=== PATIENT | female | born 1980 | race Caucasian/White ===

== ENCOUNTER 2016-05-31 07:35 | Inpatient (IN) | payer OTHER ==
[~2016-05-31] VITALS: Ht 152.4 cm; Wt 53.5 kg
[2016-05-31] MEDS ORDERED: BENZTROPINE MESYLATE 1 MG TAB PO PRN (12:45)
[2016-05-31] MEDS ORDERED: LORazepam 2 MG/ML VIAL IM PRN ×5 (12:45→15:15)
[2016-05-31] MEDS ORDERED: MAGNESIUM HYDROXIDE SUSP 30 ML CUP PO PRN (12:45)
[2016-05-31] MEDS ORDERED: diphenhydrAMINE HCL 50 MG CAP PO PRN (12:45)
[2016-05-31] MEDS ORDERED: BENZTROPINE MESYLATE 2 MG/2 ML VIAL IM PRN (12:45)
[2016-05-31] MEDS ORDERED: ACETAMINOPHEN 325 MG TAB PO PRN (12:45)
[2016-05-31] MEDS ORDERED: ALUMINUM/MAGNESIUM/SIMETH 30 ML CUP PO PRN (12:45)
[2016-05-31 13:32] VITALS: BP 116/70; PULSE 90; RESP 20; TEMP 98.1; O2SAT 95
[2016-05-31] MEDS ORDERED: FLUMAZENIL 0.5 MG/5 ML VIAL IV PUSH PRN (15:15)
[2016-05-31] MEDS ORDERED: LORazepam 1 MG TAB PO PRN (15:15)
[2016-05-31] MEDS ORDERED: LORazepam 2 MG TAB PO PRN (15:15)
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
[2016-05-31] MEDS: LORazepam 1 MG TAB PO PRN (19:06)
[2016-05-31 19:28] LABS: AUTOMATED NEUTROPHIL # 6.4 TH/MM3 (1.8-7.7); BASOPHIL % 0.5 % (0.0-2.0); EOSINOPHIL # 0.1 TH/MM3 (0-0.4); EOSINOPHIL % 1.1 % (0.0-4.0); HEMATOCRIT 36.4 % (35.0-46.0); LYMPH % 15.3 % (9.0-44.0); LYMPHOCYTE # 1.4 TH/MM3 (1.0-4.8); MEAN CELL VOLUME 86.9 FL (80.0-100.0); MEAN CORPUSCULAR HGB CONC 32.2 % (32.0-36.0); NEUT % 70.1 % (16.0-70.0); PLATELET COUNT 97 TH/MM3 (150-450); RED BLOOD COUNT 4.18 MIL/MM3 (4.00-5.30); RED CELL DISTRIBUTION WIDTH 13.9 % (11.6-17.2); WHITE BLOOD COUNT 9.1 TH/MM3 (4.0-11.0)
[2016-05-31 19:30] LABS: HEMO FLAGS AUTO DIFF
[2016-05-31 20:03] LABS: ALKALINE PHOSPHATASE 140 U/L (45-117); ALT (GPT) 104 U/L (10-53); ANION GAP 11 MEQ/L (5-15); AST (GOT) 116 U/L (15-37); BICARBONATE 24.7 MEQ/L (21.0-32.0); BLOOD UREA NITROGEN 8 MG/DL (7-18); CHLORIDE 99 MEQ/L (98-107); GLOMERULAR FILTRATION RATE 100 ML/MIN (>89); POTASSIUM 4.1 MEQ/L (3.5-5.1); SODIUM (NA) 135 MEQ/L (136-145); TOTAL BILIRUBIN ADULT 1.5 MG/DL (0.2-1.0)
[2016-05-31 20:06] LABS: BHCG SCREEN QUALITATIVE LESS THAN 1 MIU/ML (0-5)
[2016-05-31 20:07] LABS: SCAN/DIFF AUTO DIFF CONFIRMED; TARGET CELLS 2+ (NORMAL)
[2016-05-31 21:35] VITALS: BP 143/83; PULSE 112; RESP 18; TEMP 97.8; O2SAT 94
[2016-06-01 05:42] VITALS: BP 139/68; PULSE 100; RESP 18; TEMP 98.1; O2SAT 96
[2016-06-01 08:14] LABS: LDL CHOLESTEROL 56 MG/DL (0-99)
[2016-06-01] MEDS: LORazepam 1 MG TAB PO PRN ×2 (08:25→20:17)
[2016-06-01] MEDS: THIAMINE HCL 100 MG TAB PO SCH (08:25)
[2016-06-01] MEDS: FOLIC ACID 1 MG TAB PO SCH (08:25)
[2016-06-01] MEDS: NICOTINE 21 MG/24 HR PATCH T-DERMAL SCH (08:58)
[2016-06-01] MEDS: REMOVE OLD PATCH T-DERMAL SCH (08:58)
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
[2016-06-01] MEDS ORDERED: chlordiazePOXIDE 25 MG CAP PO ONE (11:15)
[2016-06-01 16:04] LABS: HEMOGLOBIN A1a 1.3 %; HEMOGLOBIN A1b 0.5 %; HEMOGLOBIN Ao 87.9 %; HEMOGLOBIN F 1.6 %; HEMOGLOBIN LA1C 1.6 %; HEMOGLOBIN P3 2.8 %
[2016-06-01 19:37] VITALS: BP 115/69; PULSE 83; RESP 16; TEMP 98.4; O2SAT 99
[2016-06-02 05:36] VITALS: BP 115/61; PULSE 105; PULSE 120; RESP 16; TEMP 98.3; O2SAT 99
--- NOTE | 2016-06-02 07:04 | EKG ---
Date Performed: 05/31/2016 Time Performed: 16:15:02 PTAGE: 35 years EKG: Sinus rhythm NORMAL ECG NO PREVIOUS TRACING DOCTOR: Bryan Gallagher Interpretating Date/Time 06/02/2016 07:01:33
[2016-06-02] MEDS: REMOVE OLD PATCH T-DERMAL SCH (09:00)
[2016-06-02] MEDS: NICOTINE 21 MG/24 HR PATCH T-DERMAL SCH (09:00)
[2016-06-02] MEDS: THIAMINE HCL 100 MG TAB PO SCH (09:18)
[2016-06-02] MEDS: FOLIC ACID 1 MG TAB PO SCH (09:19)
[2016-06-02 11:36] LABS: AMPHETAMINE, URINE NEG (NEG); BARBITURATES, URINE NEG (NEG); COCAINE, URINE NEG (NEG)
[2016-06-02] MEDS ORDERED: VITA100T2 PO (12:13)
[2016-06-02] MEDS ORDERED: FOLI1TAB4 PO (12:13)
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
[2016-06-08 08:34] LABS: BATH SALTS (MDPV) UR NEG (NEG); ECSTASY (MDMA) UR NEG (NEG); HEROIN (6-ACETYLMORPHINE) UR NEG (NEG); K2 SPICE UR NEG (NEG); OBMETHADONE UR NEG (NEG); OXYCODONE (PERCODAN) NEG (NEG); PHENCYCLIDINE URINE NEG (NEG)
== END 2016-06-02 16:20 | disposition left against medical advice (07) | DRG 894 ==
LOC: H270 12:05 → H260 06-01 11:06
PROVIDERS: ADMIT Psychiatry & Neurology Psychiatry; ATTEND Psychiatry & Neurology Psychiatry
DX: F19.150 Other psychoactive substance abuse with psychoactive substance-induced psychotic disorder with delusions (principal); F17.210 Nicotine dependence, cigarettes, uncomplicated; F12.90 Cannabis use, unspecified, uncomplicated; F43.10 Post-traumatic stress disorder, unspecified; J32.9 Chronic sinusitis, unspecified; R25.1 Tremor, unspecified
CPT/HCPCS: 80053; 80061; 80307; 83036; 84703; 85025; 93005; G0481

== ENCOUNTER 2016-07-06 11:15 | Inpatient (IN) | payer OTHER ==
[~2016-07-06] VITALS: Ht 162.6 cm; Wt 64.0 kg
[~2016-07-06 11:15] MED LIST: FOLI1TAB4 PO; VITA100T2 PO
[2016-07-06 12:54] VITALS: BP 117/86; PULSE 91; RESP 16; TEMP 99; O2SAT 96
[2016-07-06 13:07] LABS: AUTOMATED NEUTROPHIL # 7.9 TH/MM3 (1.8-7.7); BASOPHIL % 0.5 % (0.0-2.0); EOSINOPHIL % 0.2 % (0.0-4.0); HEMATOCRIT 39.7 % (35.0-46.0); HEMO FLAGS DIFF FINAL; LYMPHOCYTE # 1.2 TH/MM3 (1.0-4.8); MEAN CELL VOLUME 81.2 FL (80.0-100.0); MEAN CORPUSCULAR HEMOGLOBIN 26.4 PG (27.0-34.0); MEAN CORPUSCULAR HGB CONC 32.6 % (32.0-36.0); MONO % 8.7 % (0.0-8.0); NEUT % 78.6 % (16.0-70.0); PLATELET COUNT 100 TH/MM3 (150-450); RED BLOOD COUNT 4.89 MIL/MM3 (4.00-5.30); RED CELL DISTRIBUTION WIDTH 13.5 % (11.6-17.2); WHITE BLOOD COUNT 10.1 TH/MM3 (4.0-11.0)
--- NOTE | 2016-07-06 13:29 | PD ---
HPI Chief Complaint: Psychiatric Symptoms Time Seen by Provider: 13:25 Travel History International Travel<30 days: No Contact w/Intl Traveler<30days: No Traveled to known affect area: No History of Present Illness HPI 35-year-old female that presents to the ED for evaluation of Rodriguez act. Per record patient has been acting bizarre and making very paranoid and psychotic statements. Patient denies any medical complaints. She denies any history of diabetes or hypertension. Patient has been here once before for similar. No obvious diagnosis. Patient does tell me that she does have a history of alcohol abuse as well as marijuana abuse. She denies any homicidal or suicidal ideation. Per record patient has been more bizarre and acting more paranoid towards people. Patient has been telling police that she has a chip on her head. Symptoms have progressively been getting worse. Nothing makes them better or worse. PFSH Past Medical History Arthritis: Yes Asthma: Yes Anxiety: Yes Depression: No Cancer: No Cardiovascular Problems: No Diabetes: No Endocrine: No Genitourinary: No Headaches: No Immune Disorder: No Neurologic: No Psychiatric: Yes (PTSD) Reproductive: No Respiratory: Yes Seizures: No Social History Alcohol Use: Yes Tobacco Use: Yes Substance Use: Yes (MARIJUANA/LORATAB) Allergies-Medications (Allergen,Severity, Reaction): Coded Allergies: No Known Allergies (Unverified , 05/31/16) Reported Meds & Prescriptions Reported Meds & Active Scripts Active Folate (Folic Acid) 1 Mg Tab 1 Mg PO DAILY 30 Days Vitamin B-1 (Thiamine HCl) 100 Mg Tab 100 Mg PO DAILY 30 Days Review of Systems ROS Limitations: Psychotic General / Constitutional: No: Fever, Chills, Weight Gain, Weight Loss, Other Eyes: No: Diploplia, Blurred Vision, Photophobia, Drainage, Redness, Foreign Body Sensation, Pain, Tearing, Blind Spots, Visual changes, Blindness, Other HENT: No: Headaches, Vertigo, Lightheadedness, Sore Throat, Rhinitis, Rhinorrhea, Congestion, Nosebleed, Neck Stiffness, Neck Pain, Masses, Gingival Bleeding, Dental Difficulties, Ear Discharge, Earache, Other Cardiovascular: No: Chest Pain or Discomfort, Palpitations, Irregular Rhythm, Tachycardia, Diaphoresis, Syncope, Dyspnea on exertion, Varicosities, Edema, Cyanosis, Varicosities, Phlebitis, Claudication, Other Respiratory: No: Cough, Shortness of Breath, Wheezing, Sneezing, Orthopnea, Hemoptysis, Stridor, Night Sweats, Pleuritic Pain, Other Gastrointestinal: No: Nausea, Vomiting, Diarrhea, Abdominal Pain, Hematemesis, Hematochezia, Constipation, Changes in Bowel Habits, Indigestion, Dysphagia, Loss of Appetite, Other Genitourinary: No: Urgency, Frequency, Dysuria, Nocturia, Hematuria, Decreased Urinary Output, Oliguria, Hesitancy, Dribbling, Incontinence, Pelvic Pain, Flank Pain, Dyspareunia, Discharge, Dysmenorrhea, Menorrhagia, Metorrhagia, Vaginal Bleeding, Other Musculoskeletal: No: Myalgias, Arthralgias, Limited ROM, Weakness, Cramping, Edema, Pain, Atrophy, Other Skin: No Rash, No Itching, No Dryness, No Lumps, No Hives, No Change in Pigmentation, No Change in nails, No Alopecia, No Lesions, No Breast Lumps, No Breast Tenderness, No Breast Swelling, No Other Psychiatric: Positive: Disorder of Thought, Mood Disorder, Substance Abuse, No : Anxiety, Depression, Suicidal Ideations, Homicidal Ideation, Other Endocrine: No: Heat Intolerance, Cold Intolerance, Polyuria, Polydipsia, Other Hematologic/Lymphatic: No: Easy Bruising, Lymph Node Enlargement, Other Physical Exam Exam Limitations: Psychotic Narrative GENERAL: SKIN: Warm and dry. HEAD: Atraumatic. Normocephalic. EYES: Pupils equal and round. No scleral icterus. No injection or drainage. ENT: No nasal bleeding or discharge. Mucous membranes pink and moist. Tongue is midline. No uvula deviation. NECK: Trachea midline. No JVD. CARDIOVASCULAR: Regular rate and rhythm. No murmurs, S3, S4. RESPIRATORY: No accessory muscle use. Clear to auscultation. Breath sounds equal bilaterally. GASTROINTESTINAL: Abdomen soft, non-tender, nondistended. Hepatic and splenic margins not palpable. MUSCULOSKELETAL: Extremities without clubbing, cyanosis, or edema. No obvious deformities. Full range of motion of the upper and lower extremities bilaterally. 2+ pulses bilaterally. NEUROLOGICAL: Awake and alert. No obvious cranial nerve deficits. Motor grossly within normal limits. Five out of 5 muscle strength in the arms and legs. Normal speech. PSYCHIATRIC: psychotic mood and affect; insight and judgment questionable Data Data Last Documented VS Vital Signs Date Time Temp Pulse Resp B/P Pulse Ox O2 Delivery O2 Flow Rate FiO2 07/06/16 12:54 99.0 91 16 117/86 96 Orders Complete Blood Count With Diff (07/06/16 12:07) Comprehensive Metabolic Panel (07/06/16 12:07) Psych Screen (07/06/16 12:07) Drug Screen, Random Urine (07/06/16 12:07) Alcohol (Ethanol) (07/06/16 12:07) Potassium Chloride (Kcl) (07/06/16 13:45) Potassium Chloride (Kcl) (07/06/16 13:45) Potassium Chloride (Kcl) (07/06/16 13:45) Labs Laboratory Tests Test 07/06/16 12:50 White Blood Count 10.1 TH/MM3 Red Blood Count 4.89 MIL/MM3 Hemoglobin 12.9 GM/DL Hematocrit 39.7 % Mean Corpuscular Volume 81.2 FL Mean Corpuscular Hemoglobin 26.4 PG Mean Corpuscular Hemoglobin 32.6 % Concent Red Cell Distribution Width 13.5 % Platelet Count 100 TH/MM3 Mean Platelet Volume 9.7 FL Neutrophils (%) (Auto) 78.6 % Lymphocytes (%) (Auto) 12.0 % Monocytes (%) (Auto) 8.7 % Eosinophils (%) (Auto) 0.2 % Basophils (%) (Auto) 0.5 % Neutrophils # (Auto) 7.9 TH/MM3 Lymphocytes # (Auto) 1.2 TH/MM3 Monocytes # (Auto) 0.9 TH/MM3 Eosinophils # (Auto) 0.0 TH/MM3 Basophils # (Auto) 0.0 TH/MM3 CBC Comment DIFF FINAL Differential Comment Sodium Level 135 MEQ/L Potassium Level 2.5 MEQ/L Chloride Level 93 MEQ/L Carbon Dioxide Level 30.0 MEQ/L Anion Gap 12 MEQ/L Blood Urea Nitrogen 10 MG/DL Creatinine 0.73 MG/DL Estimat Glomerular Filtration 92 ML/MIN Rate Random Glucose 90 MG/DL Calcium Level 9.8 MG/DL Total Bilirubin 2.4 MG/DL Aspartate Amino Transf 112 U/L (AST/SGOT) Alanine Aminotransferase 77 U/L (ALT/SGPT) Alkaline Phosphatase 117 U/L Total Protein 8.5 GM/DL Albumin 4.6 GM/DL Ethyl Alcohol Level LESS THAN 3 MG/DL MDM Medical Decision Making Medical Screen Exam Complete: Yes Emergency Medical Condition: Yes Medical Record Reviewed: Yes Interpretation(s) CBC & BMP Diagram 07/06/16 12:50 Differential Diagnosis Depression versus suicidal ideation versus anxiety versus adjustment disorder versus mood disorder versus bipolar disorder versus schizophrenia versus paranoid disorder versus psychosis versus substance abuse versus alcohol abuse versus alcohol induced psychosis versus homicidality addition versus cutting versus personality disorder Narrative Course 35-year-old female that presents to the ED for evaluation of Rodriguez act. Patient was properly examined and was found to have signs and symptoms consistent with appears to be psychiatric illness. No sign of acute medical distress. Patient was medically clear. Okay to be seen by psych. K was 2.5. Case discussed with attending who recommend 50 mEQ of potassium PO. Mental health screening was discussed with the patient. Diagnosis Primary Impression: Psychosis Qualified Code: F29 - Psychosis, unspecified psychosis type Additional Impressions: Substance abuse Hypokalemia Jarred Tristan Jul 06, 2016 13:29
[2016-07-06 13:30] LABS: ALT (GPT) 77 U/L (10-53); ANION GAP 12 MEQ/L (5-15); AST (GOT) 112 U/L (15-37); BLOOD UREA NITROGEN 10 MG/DL (7-18); CHLORIDE 93 MEQ/L (98-107); GLOMERULAR FILTRATION RATE 92 ML/MIN (>89); SODIUM (NA) 135 MEQ/L (136-145)
[2016-07-06 13:33] LABS: POTASSIUM 2.5 MEQ/L (3.5-5.1)
[2016-07-06 13:34] LABS: ALKALINE PHOSPHATASE 117 U/L (45-117); TOTAL BILIRUBIN ADULT 2.4 MG/DL (0.2-1.0)
[2016-07-06] MEDS ORDERED: POTASSIUM CHLORIDE 10 MEQ CONTROLLED RELEASE TAB PO ONE (13:45)
[2016-07-06] MEDS ORDERED: POTASSIUM CHLORIDE 20 MEQ CONTROLLED RELEASE TAB PO ONE ×3 (13:45→19:45)
[2016-07-06 14:29] VITALS: BP 125/81; PULSE 87; RESP 20; TEMP 98.7; O2SAT 98
[2016-07-06] MEDS ORDERED: ACETAMINOPHEN 325 MG TAB PO PRN ×2 (15:45→17:00)
[2016-07-06] MEDS ORDERED: LORazepam 2 MG/ML VIAL IV PUSH PRN ×8 (15:45→23:45)
[2016-07-06] MEDS ORDERED: ONDANSETRON ODT 4 MG TAB PO PRN (15:45)
[2016-07-06] MEDS ORDERED: FLUMAZENIL 0.5 MG/5 ML VIAL IV PUSH PRN ×2 (15:45→23:45)
[2016-07-06] MEDS: LORazepam 2 MG TAB PO PRN ×2 (16:12→17:49)
--- NOTE | 2016-07-06 16:57 | HHI.HP ---
Provisional Diagnosis Admission Date 07/06/2016 [place] I. 1. Brief psychotic disorder Rule out substance-induced psychotic disorder Rule out mood disorder with psychotic features such as bipolar disorder with psychotic features Rule out primary psychotic disorder Rule out severe anxiety with some degree of dissociation 2. Polysubstance abuse including alcohol and cannabis [place] II. Deferred [place] V. GAF is 40 presently Certification of Person's Competence To Provide Express and Informed Consent I have personally examined Génesis Melvin , a person being served at [facility] on, Jul 06, 2016 16:56. Express and informed consent means consent voluntarily given in writing, by a competent person, after sufficient explanation and disclosure of the subject matter involved to enable the person to make a knowing and willful decision without any element of force, fraud, deceit, duress, or other form of constraint or coercion. This person is 18 years of age or older, is not now known to be incompetent to consent to treatment with a guardian advocate, and does not have a health care surrogate or proxy currently making medical treatment decisions. I have found this person to be one of the following: [x] Competent to provide express and informed consent, as defined above, for voluntary admission to this facility and is competent to provide express and informed consent for treatment. He/she has the consistent capacity to make well reasoned, willful, and knowing decisions concerning his or her medical or mental health treatment. The person fully and consistently understands the purpose of the admission for examination/placement and is fully capable of personally exercising all rights assured [place] Incompetent to provide express and informed consent to voluntary admission, and this is incompetent to provide express and informed consent to treatment. The person must be transferred to involuntary status and a petition for a guardian advocate filed with the Circuit Court. [] Refusing to provide express and informed consent to voluntary admission but is competent to provide express and informed consent for treatment. The person must be discharged or transferred to involuntary status. Form shall be completed within 24 hours of a person's arrival at the receiving facility and filed in the clinical record of each person: 1. Admitted on a voluntary basis 2. Permitted to provide express and informed consent to his/her own treatment 3. Allowed to transfer from involuntary to voluntary status 4. Prior to permitting a person to consent to his or her own treatment after having been previously found incompetent to consent to treatment. History of Present Illness Capacity: Has Capacity HPI Ms. Melvin is a 35-year-old female with a reported history of anxiety and posttraumatic stress who presents under a Rodriguez act from [facility]'s office alleging that the patient was observed screaming at a filing cabinet and claiming her boyfriend was . She also allegedly believed that she had an implant in her head and everyone could see what she was thinking. Per the Rodriguez act, the symptoms have been going on for several months. Reviewing the electronic medical record, I note the patient was admitted briefly under my care at the beginning of May for what I suspected at the time was a drug induced psychotic disorder; she was ultimately discharged AGAINST MEDICAL ADVICE. Patient seen and examined. Chart reviewed. Case discussed with nursing staff. Nursing is obtained collateral from patient's mother suggesting that patient psychiatric symptoms on this occasion her of more recent vintage then had been alleged in the Rodriguez act. In particular, mother reportedly told nurse that the patient has not been sleeping for the last 7 days and has been experiencing the above delusions in the context of her sleeplessness. On my examination today, the patient reports that following her departure from the inpatient psychiatric unit in early May she continued to experience what she describes as panic attacks. She says that yesterday evening she was at a democrat and was drinking and smoking cannabis and had a similar attack. She describes this episode as a period of intense anxiety and feeling "like I was carrying a weight on my shoulders." She says that she was experiencing auditory hallucinations at that time "nothing harmful or suicidal, just little messages, quotes, numbers, letters like a password." She denies any visual hallucinations, although nursing staff tells me that patient thought that nurse's computer station was resting on the back of some sort of animal. No reported ongoing auditory hallucinations. She does not recall experiencing any of the paranoia that was alleged in the Rodriguez act. She remains quite generally anxious. She denies any suicidal or homicidal thoughts. Mood is somewhat downcast, but the patient emphasizes that she does not see mood disturbance as her primary issue, but rather feels anxiety is the chief issue. No ashleigh delusional material at this time. The remainder of the psychiatric ROS is negative. Patient is agreeable to voluntary psychiatric admission at this time. Interval psychiatric history: Patient reports that she has followed up with an outpatient psychiatric provider locally for an initial intake. She says that she was diagnosed with some sort of depressive/anxious disorder at that time but was not placed on any medications. She has a follow-up appointment in 1 week she says. She denies any interval psychiatric admissions or suicide attempts. Family history: Unchanged from my previous assessment except that the patient says that her paternal grandmother struggles with anxiety and was on Paxil. Chemical dependency history: Patient says that she has "cut down" on her alcohol consumption and is presently drinking a pint of liquor daily. She says that her last use of alcohol was last evening. Her alcohol level was undetectable on presentation here, but this does not rule out recent alcohol use. She denies any clear history of DTs or seizures. She smokes cannabis occasionally, she says. She denies any other substance use. Social history: This is reportedly unchanged from my previous assessment except that she notes that she just broke up with her boyfriend of 13 years, Hugo. She says that "things just weren't working out." She notes that she had been residing with Hugo in his trailer and now plans to stay with her grandparents on discharge from the hospital. Review of Systems Other No reported headache, vision or hearing changes, chest pain, bowel or bladder issues, shortness of breath. No other physical complaints besides some mild tremulousness. Past Psych History Psychological trauma history Patient does not describe any trauma history to me today but see previous assessment Violence risk - others (6 mos) Likely lower imminent risk. Patient denies any homicidal ideation. There has been no evidence of violence in the J-pod. Violence risk - self (6 mos) Indeterminate. Patient denies suicidal ideation but is quite anxious and has recently been experiencing psychotic symptoms. Substance use would also be a risk factor for self-harm. Substance Abuse History Drugs/Alcohol past 12 months See above Past Family Social History Coded Allergies: No Known Allergies (Unverified , 07/06/16) Per pt. Past Medical History See electronic medical record Discontinued Scripts Folic Acid (Folate)1 Mg Tab1 Mg PO DAILY 30 Days Ref 0 Prov:Viktor Glover MD 06/02/16 Thiamine (Vitamin B-1)100 Mg [id number] Mg PO DAILY 30 Days Ref 0 Prov:Viktor Glover MD 06/02/16 Current Medications Medications (Trade) Dose Ordered Sig/Good Route Start Time Stop Time Status Last Admin (Zofran Odt) 4 mg Q8H PRN PO 07/06/16 15:45 (Tylenol) 650 mg Q4H PRN PO 07/06/16 15:45 (Romazicon Inj) 0.2 mg Q1M PRN IV PUSH 07/06/16 15:45 (Ativan) 1 mg Q4H PRN PO 07/06/16 15:45 (Ativan) 2 mg Q2H PRN PO 07/06/16 15:45 07/06/16 16:12 (Ativan Inj) 1 mg Q4H PRN IM 07/06/16 19:45 (Ativan Inj) 2 mg Q15M PRN IM 07/06/16 17:00 (Ativan Inj) 2 mg Q1H PRN IM 07/06/16 17:45 (Ativan Inj) 2 mg Q2H PRN IM 07/06/16 17:45 Family History See above Social History See above Patient's Strengths (min. 2) In a monitored setting. Verbally fluent. Physical Exam Physical examination completed by ED provider. On my examination today, I find a thin but otherwise well developed female in no acute physical distress. She does display some mild hand tremor and diaphoresis but no mydriasis, no tongue fasciculations, no hyperreflexia, no other signs of GABAergic withdrawal at this time. No other motoric abnormalities noted. Labs and vital signs reviewed : Vital Signs Vital Signs Date Time Temp Pulse Resp B/P Pulse Ox O2 Delivery O2 Flow Rate FiO2 07/06/16 14:29 98.7 87 20 125/81 98 Room Air Lab Results Item Value Date Time White Blood Count 10.1 TH/MM3 07/06/16 1250 Hemoglobin 12.9 GM/DL 07/06/16 1250 Platelet Count 100 TH/MM3 L 07/06/16 1250 Sodium Level 135 MEQ/L L 07/06/16 1250 Potassium Level 2.5 MEQ/L *L 07/06/16 1250 Chloride Level 93 MEQ/L L 07/06/16 1250 Blood Urea Nitrogen 10 MG/DL 07/06/16 1250 Creatinine 0.73 MG/DL 07/06/16 1250 Carbon Dioxide Level 30.0 MEQ/L 07/06/16 1250 Aspartate Amino Transf (AST/SGOT) 112 U/L H 07/06/16 1250 Alanine Aminotransferase (ALT/SGPT) 77 U/L H 07/06/16 1250 Alkaline Phosphatase 117 U/L 07/06/16 1250 Ethyl Alcohol Level LESS THAN 3 MG/DL 07/06/16 1250 Urine toxicology is not available for my review at this time. Patient's potassium was repleted by the ED provider. Patient's thrombocytopenia is essentially stable compared with her May admission. Patient's transaminitis is slightly improved versus May admission. Mental Status Examination Patient is in hospital gown. She is fairly well groomed and certainly maintaining basic hygiene. She is awake and alert and oriented to person, place and date. She is able to spell the word world forward but gives it backwards as DLROD. She does struggle with serial sevens. Motor exam is as above. Speech is slightly pressured, but this may be due to anxiety. Language and fund of knowledge seemed average. Affect is somewhat dysphoric but mood is reportedly fair. Thought processes fairly linear at this juncture. No loosening of associations. Unclear if there is some degree of paranoia. No other delusional material evident. Denies ongoing audiovisual hallucinations. Denies suicidal or homicidal ideation, but it is not clear that she has reliable contract for safety in her present state. Insight and judgment seem fair to poor. Assessment & Plan Problem List: (1) Psychosis ICD Code: F29 (2) Substance abuse ICD Code: F19.10 Assessment & Plan This is a 35-year-old female with psychiatric history as detailed above who presents under a Rodriguez act. Patient was recently discharged AGAINST MEDICAL ADVICE from the inpatient psychiatric unit for what was suspected to be a drug-induced psychotic disorder. Rodriguez act on the current medication alleges psychotic symptoms and collateral from family suggests that these occurred in the context of poor sleep. Patient says that she has been drinking about a pint of liquor daily. Differential would include drug-induced psychotic disorder, mood disorder with psychotic features such as a bipolar disorder with the substance use as an epiphenomenon of the mood instability, primary psychotic disorder, or perhaps severe anxiety with some degree of dissociation. Patient is presently agreeable to admission to the inpatient psychiatric unit for stabilization, and I think this is most prudent at this juncture. Admitted inpatient. Voluntary status. Check a stat potassium to ensure that this is improving. Check a stat beta hCG. Check a urine drug screen and urinalysis along with culture if needed. Check a BMP and magnesium in the morning. For her psychosis, start low-dose Zyprexa, 5 mg at bedtime. Initiate Ativan taper given transaminitis for the management of withdrawal. CIWA with Ativan as needed for any breakthrough withdrawal. Thiamine and folate. Seizure and fall precautions. Atarax as needed for anxiety, Cogentin as needed for EPS. Hold off on additional sedating medications to avoid masking withdrawal. Vitals every shift. Counselor to see. Disposition planning. Estimated length of stay: 5-7 days. Discharge Planning Pending psychiatric stabilization Request HC Surrog/Guard Advoc?: No Problem Qualifiers (1) Psychosis: Qualified Code: F23 - Brief psychotic disorder Viktor Glover MD Jul 06, 2016 16:56
[2016-07-06] MEDS ORDERED: BENZTROPINE MESYLATE 2 MG/2 ML VIAL IM PRN (17:00)
[2016-07-06] MEDS ORDERED: MAGNESIUM HYDROXIDE SUSP 30 ML CUP PO PRN (17:00)
[2016-07-06] MEDS ORDERED: hydrOXYzine HCL 50 MG TAB PO PRN (17:00)
[2016-07-06] MEDS ORDERED: LORazepam 2 MG/ML VIAL IM PRN ×4 (17:00→19:45)
[2016-07-06] MEDS ORDERED: BENZTROPINE MESYLATE 1 MG TAB PO PRN (17:00)
[2016-07-06] MEDS ORDERED: ALUMINUM/MAGNESIUM/SIMETH 30 ML CUP PO PRN (17:00)
[2016-07-06 17:55] VITALS: BP 123/79; PULSE 113; RESP 22; O2SAT 96
[2016-07-06] MEDS: LORazepam 1 MG TAB PO SCH ×2 (19:30→23:51)
[2016-07-06] MEDS: LORazepam 1 MG TAB PO PRN (20:20)
[2016-07-06] MEDS ORDERED: OLANZapine IM 10 MG VIAL IM ONE (20:30)
[2016-07-06] MEDS: OLANZapine 5 MG TAB PO SCH (21:00)
[2016-07-06 21:03] VITALS: PULSE 124; TEMP 99.8
[2016-07-06] MEDS ORDERED: NS + KCL 20 MEQ INJ 1,000 ML IV SCH (22:00)
[2016-07-06] MEDS ORDERED: POTASSIUM CHLOR 20 MEQ PREMIX 100 ML IV SCH (22:15)
[2016-07-06] MEDS ORDERED: POTASSIUM CHLORIDE 25 MEQ EFFERVESCENT TAB PO ONE (22:15)
[2016-07-06 22:43] LABS: MAGNESIUM 1.5 MG/DL (1.5-2.5)
[2016-07-06 22:52] VITALS: BP 114/67; PULSE 110; RESP 20; TEMP 99.9; O2SAT 98
--- NOTE | 2016-07-06 22:52 | HHI.DS ---
Psychiatry Discharge Summary Inpatient Psychiatric care?: Yes Advance Directive: No Mental Health AdvanceDirective: No Health Care Proxy: No Admission Admission Date Jul 06, 2016 at 16:54 Admission Diagnosis: (1) Psychosis ICD Code: F29 (2) Substance abuse ICD Code: F19.10 Brief History Ms. Melvin is a 35-year-old female with a reported history of anxiety and posttraumatic stress who presents under a Rodriguez act from [facility]'s office alleging that the patient was observed screaming at a filing cabinet and claiming her boyfriend was . She also allegedly believed that she had an implant in her head and everyone could see what she was thinking. Per the Rodriguez act, the symptoms have been going on for several months. Reviewing the electronic medical record, I note the patient was admitted briefly under my care at the beginning of May for what I suspected at the time was a drug induced psychotic disorder; she was ultimately discharged AGAINST MEDICAL ADVICE. Patient seen and examined. Chart reviewed. Case discussed with nursing staff. Nursing is obtained collateral from patient's mother suggesting that patient psychiatric symptoms on this occasion her of more recent vintage then had been alleged in the Rodriguez act. In particular, mother reportedly told nurse that the patient has not been sleeping for the last 7 days and has been experiencing the above delusions in the context of her sleeplessness. On my examination today, the patient reports that following her departure from the inpatient psychiatric unit in early May she continued to experience what she describes as panic attacks. She says that yesterday evening she was at a republican and was drinking and smoking cannabis and had a similar attack. She describes this episode as a period of intense anxiety and feeling "like I was carrying a weight on my shoulders." She says that she was experiencing auditory hallucinations at that time "nothing harmful or suicidal, just little messages, quotes, numbers, letters like a password." She denies any visual hallucinations, although nursing staff tells me that patient thought that nurse's computer station was resting on the back of some sort of animal. No reported ongoing auditory hallucinations. She does not recall experiencing any of the paranoia that was alleged in the Rodriguez act. She remains quite generally anxious. She denies any suicidal or homicidal thoughts. Mood is somewhat downcast, but the patient emphasizes that she does not see mood disturbance as her primary issue, but rather feels anxiety is the chief issue. No ashleigh delusional material at this time. The remainder of the psychiatric ROS is negative. Patient is agreeable to voluntary psychiatric admission at this time. Interval psychiatric history: Patient reports that she has followed up with an outpatient psychiatric provider locally for an initial intake. She says that she was diagnosed with some sort of depressive/anxious disorder at that time but was not placed on any medications. She has a follow-up appointment in 1 week she says. She denies any interval psychiatric admissions or suicide attempts. Family history: Unchanged from my previous assessment except that the patient says that her paternal grandmother struggles with anxiety and was on Paxil. Chemical dependency history: Patient says that she has "cut down" on her alcohol consumption and is presently drinking a pint of liquor daily. She says that her last use of alcohol was last evening. Her alcohol level was undetectable on presentation here, but this does not rule out recent alcohol use. She denies any clear history of DTs or seizures. She smokes cannabis occasionally, she says. She denies any other substance use. Social history: This is reportedly unchanged from my previous assessment except that she notes that she just broke up with her boyfriend of 13 years, Hugo. She says that "things just weren't working out." She notes that she had been residing with Hugo in his trailer and now plans to stay with her grandparents on discharge from the hospital. Tobacco Use In Past 30 Days: No Tobacco Past 30 Days Alcohol Use: 4 or More Times Per Week Hospital Course Following my evaluation of pt in the ED this afternoon, I was notified by nursing staff that patient was becoming increasingly restless and disorganized, preventing transfer to the 2600 unit as planned. While in the J-pod, patient also became increasingly tachycardic. candy separator hard Alban requested hospitalist consultation, and SHIRT SORTER has paged me ~10:30pm this evening to notify me that the hospitalist service wishes to admit the patient to a telemetry floor for further monitoring. Given the reported change in patient's status from my evaluation this afternoon, transfer seems appropriate at this juncture. I will therefore discharge the patient from psychiatry to allow for transfer to the medical floor for further management. I recommend consulting psychiatry to follow the patient on the medical floor and placing the patient with a sitter for behavioral redirection on the medical floor. Results Blood Pressure 123 / 79 Vital Signs Date Time Temp Pulse Resp B/P Pulse Ox O2 Delivery O2 Flow Rate FiO2 07/06/16 21:03 99.8 124 07/06/16 17:55 22 123/79 96 Room Air Laboratory Tests Test 07/06/16 07/06/16 12:50 18:53 Mean Corpuscular Hemoglobin 26.4 PG (27.0-34.0) Platelet Count 100 TH/MM3 (150-450) Neutrophils (%) (Auto) 78.6 % (16.0-70.0) Monocytes (%) (Auto) 8.7 % (0.0-8.0) Neutrophils # (Auto) 7.9 TH/MM3 (1.8-7.7) Sodium Level 135 MEQ/L (136-145) Potassium Level 2.5 MEQ/L 2.7 MEQ/L (3.5-5.1) (3.5-5.1) Chloride Level 93 MEQ/L (98-107) Total Bilirubin 2.4 MG/DL (0.2-1.0) Aspartate Amino Transf 112 U/L (15-37) (AST/SGOT) Alanine Aminotransferase 77 U/L (10-53) (ALT/SGPT) Total Protein 8.5 GM/DL (6.4-8.2) Ammonia 38 MCMOL/L (11-32) Summary of Procedures None done Imaging None done Pending results at discharge: Yes Medications # of Antipsychotic meds at D/C: 0 Approp Antipsych med options 1 - Minimum of three failed multiple trials of monotherapy. 2 - Documented plan to taper to monotherapy due to previous use of multiple meds OR cross-taper in progress at D/C. 3 - Documentation of augmentation of Clozapine. 4 - Justification other than those listed in allowable values 1-3, document here : Discharge Discharge Date: Jul 06, 2016 Discharge Diagnosis: (1) Psychosis Diagnosis: Principal ICD Code: F29 (2) Substance abuse Diagnosis: Secondary ICD Code: F19.10 Mental Status Exam at Disch See H&P Pt Condition on Discharge: Guarded Discharge Disposition: Disch to Another Hospital (Transfer to medical floor.) Discharge Instructions Diet Instructions: As Tolerated, No Restrictions Activities you can perform: Weight Bearing as Katina Medication Profile: No Active Prescriptions or Reported Meds Discharge Time <= 30 minutes Discharge/Advance Care Plan Health Problems: (1) Psychosis (2) Substance abuse Goals to promote your health * To prevent worsening of your condition and complications * To maintain your health at the optimal level Directions to meet your goals Take your medications as prescribed Follow your dietary instruction Follow activity as directed Keep your appointments as scheduled Take your immunizations and boosters as scheduled If your symptoms worsen call your PCP, if no PCP go to Urgent Care Center or Emergency Room For 20/11 questions related to your inpatient stay or results of tests pending at discharge, please contact Dr. Viktor Glover at Smoking is Dangerous to Your Health. Avoid second hand smoking Problem Qualifiers (1) Psychosis: Qualified Code: F23 - Brief psychotic disorder Viktor Glover MD Jul 06, 2016 22:52 Viktor Glover MD Jul 06, 2016 22:52
--- NOTE | 2016-07-06 22:55 | RADRPT ---
EXAM DATE/TIME: 07/06/2016 22:37 [place] COMPARISON: No previous studies available for comparison. INDICATIONS : Fever. MEDICAL HISTORY : unobtainable. SURGICAL HISTORY : unobtainable. ENCOUNTER: Initial ACUITY: 1 day PAIN SCORE: 0/10 LOCATION: Bilateral chest FINDINGS: A single view of the chest demonstrates the lungs to be symmetrically aerated without evidence of mas s, infiltrate or effusion. The cardiomediastinal contours are unremarkable. Osseous structures are intact. CONCLUSION: No evidence of acute cardiopulmonary disease. Nilo Denton MD on July 06, 2016 at 22:53 Board Certified Radiologist. This report was verified electronically.
[2016-07-06] MEDS ORDERED: POTASSIUM CHLOR 20 MEQ PREMIX 100 ML IV ONE (23:15)
[2016-07-06] MEDS ORDERED: MAGNESIUM SULFATE 1 GM PREMIX 100 ML IV ONE (23:15)
[2016-07-06] MEDS: SODIUM CHLOR 0.9% 1000 ML INJ 1,000 ML IV SCH (23:26)
--- NOTE | 2016-07-06 23:44 | HHI.HP ---
[facility] Primary [facility] Physician No Primary Care Physician Admission Diagnosis Psychosis Diagnoses: (1) SIRS (systemic inflammatory response syndrome) Diagnosis: Principal (2) Hypokalemia Diagnosis: Principal (3) Hypomagnesemia Diagnosis: Principal (4) Alcohol abuse Diagnosis: Principal (5) Psychosis Diagnosis: Principal Travel History International Travel<30 Days: No Contact w/Intl Traveler <30 Da: No Traveled to Known Affected Are: No History of Present Illness This is a 35-year-old female with a PMH of Polysubstance Abuse, Anxiety and h/o PTSD who was brought to the ER by [facility]'s Dept under Rodriguez Act for bizarre and inappropriate behavior. Per records, pt was yelling at a file cabinet and thought she had an implant placed in her head so everyone could hear her thoughts. On arrival, BP 117/86, HR 91, O2 sat 96% on RA, Temp 99.0. CBC at baseline. K+ 2.5. LFT elevated, similar in comparison to previous. Was initially admitted to [facility] and had eval by Dr. Glover for Psychosis and Substance Abuse. While in [facility] pt w/ increasing agitation, HR 120's, persistent low-grade temp of 99.9 and persistent hypokalemia despite replacement w/ repeat K+ 2.7. I was called by student loan counselor for consult, however recommended pt be transferred for admission to Medicine in light of her multiple medical issues. Pt transferred to ER. While in ER, pt requiring multiple doses of Ativan and Haldol secondary to significant agitation. Unable to obtain any history from pt. Review of Systems ROS: Unable to obtain Past Family Social History Past Medical History PMH: Polysubstance Abuse, Anxiety and h/o PTSD Past Surgical History PAST SURGICAL HISTORY: Unknown Allergies: Coded Allergies: No Known Allergies (Unverified , 07/06/16) Per pt. Family History PAST FAMILY HISTORY: Reviewed. No h/o DM or CAD Social History PAST SOCIAL HISTORY: Drinks 1 Pint Vodka/day. Smokes 1ppd. Positive for Marijuana/Opiates. Physical Exam Vital Signs Vital Signs Date Time Temp Pulse Resp B/P Pulse Ox O2 Delivery O2 Flow Rate FiO2 07/06/16 22:52 99.9 110 20 114/67 98 Room Air 07/06/16 21:03 99.8 124 07/06/16 17:55 113 22 123/79 96 Room Air 07/06/16 14:29 98.7 87 20 125/81 98 Room Air 07/06/16 12:54 99.0 91 16 117/86 96 Physical Exam PE: GENERAL: Extremely agitated middle-aged white female in no acute distress, screaming, difficult to re-focus, trying to bite off restraints. HEENT: PERRLA, EOMI. No scleral icterus or conjunctival pallor. No lid lag or facial droop. CARDIOVASCULAR: Regular rate and rhythm. No obvious murmurs to auscultation. No chest tenderness to palpation. RESPIRATORY: No obvious rhonchi or wheezing. Clear to auscultation. Breath sounds equal bilaterally. GASTROINTESTINAL: Abdomen soft, non-tender, nondistended. BS normal. +Livedo reticularis MUSCULOSKELETAL: Extremities without clubbing, cyanosis, or edema. No obvious deformities. NEUROLOGICAL: Awake, agitated, in restraints, trying to bite off restraints. No focal neurologic deficits. Moving both upper and lower extremities spontaneously. Laboratory Laboratory Tests Test 07/06/16 07/06/16 12:50 18:53 White Blood Count 10.1 Red Blood Count 4.89 Hemoglobin 12.9 Hematocrit 39.7 Mean Corpuscular Volume 81.2 Mean Corpuscular Hemoglobin 26.4 Mean Corpuscular Hemoglobin 32.6 Concent Red Cell Distribution Width 13.5 Platelet Count 100 Mean Platelet Volume 9.7 Neutrophils (%) (Auto) 78.6 Lymphocytes (%) (Auto) 12.0 Monocytes (%) (Auto) 8.7 Eosinophils (%) (Auto) 0.2 Basophils (%) (Auto) 0.5 Neutrophils # (Auto) 7.9 Lymphocytes # (Auto) 1.2 Monocytes # (Auto) 0.9 Eosinophils # (Auto) 0.0 Basophils # (Auto) 0.0 CBC Comment DIFF FINAL Differential Comment Sodium Level 135 Potassium Level 2.5 2.7 Chloride Level 93 Carbon Dioxide Level 30.0 Anion Gap 12 Blood Urea Nitrogen 10 Creatinine 0.73 Estimat Glomerular Filtration 92 Rate Random Glucose 90 Calcium Level 9.8 Total Bilirubin 2.4 Aspartate Amino Transf 112 (AST/SGOT) Alanine Aminotransferase 77 (ALT/SGPT) Alkaline Phosphatase 117 Total Protein 8.5 Albumin 4.6 Ethyl Alcohol Level LESS THAN 3 Magnesium Level 1.5 Ammonia 38 Beta HCG, Qualitative LESS THAN 1 Result Diagram: 07/06/16 1250 07/06/16 3178 Assessment and Plan Problem List: (1) SIRS (systemic inflammatory response syndrome) ICD Code: R65.10 Status: Acute (2) Hypokalemia ICD Code: E87.6 Status: Acute (3) Hypomagnesemia ICD Code: E83.42 Status: Acute (4) Psychosis ICD Code: F29 Status: Acute (5) Alcohol abuse ICD Code: F10.10 Status: Acute Assessment and Plan A/P: 1. SIRS: Temp 99.9, WBC normal however +shift, HR 110-130's. Possibly related to withdrawal or underlying infection. Lactic Acid normal. Check Blood Cultures, obtain CXR, U/a and Urine Drug Screen, IVF for hydration. 2. Hypokalemia: K+ 2.5, s/p replacement in ER, repeat K+ 2.7, will replace and repeat labs. Replace Mg as well. 3. Hypomagnesemia: Mg 1.5, will replace and recheck 4. Psychosis: Currently under Rodriguez Act for bizarre behavior, s/p admit to JPod w/ eval by Dr. Glover, however pt transferred to medical floor. Will re -consult Psych for further evaluation. Persistent agitation requiring multiple doses of Ativan and Haldol. Currently in leather restraints. S/p Geodon, finally calm. Sitter. 5. Alcohol Abuse: w/ Acute Alcohol Withdrawal. Drinks 1 Pint Vodka daily per report. CIWA, Seizure Precautions, Thiamine/Folate/MVT. 6. DVT Prophylaxis: SCD/Teds. 7. Social work for d/c planning as needed. 8. Case discussed w/ ER physician at length. Physician Certification 2 Midnight Certification Type: Admission for Inpatient Services Order for Inpatient Services The services are ordered in accordance with Medicare regulations or non- Medicare payer requirements, as applicable. In the case of services not specified as inpatient-only, they are appropriately provided as inpatient services in accordance with the 2-midnight benchmark. Estimated LOS (days): 2 days is the estimated time the patient will need to remain in the hospital, assuming treatment plan goals are met and no additional complications. Post-Hospital Plan: Not yet determined Problem Qualifiers (1) Psychosis: Qualified Code: F23 - Brief psychotic disorder Grace Lutz MD Jul 06, 2016 23:44
[2016-07-06 23:52] VITALS: BP 109/75; PULSE 114; RESP 18; O2SAT 100
[2016-07-07] VITALS (8 sets, daily range): BP systolic 95–134; BP diastolic 59–85; PULSE 71–141; RESP 16–24; TEMP 97.8–97.9; O2SAT 94–100
[2016-07-07] MEDS: HALOPERIDOL LACTATE 5 MG/ML AMP IM PRN ×2 (00:22→04:27)
[2016-07-07 00:28] LABS: BETA HCG QUANT LESS THAN 1 MIU/ML (0-5)
[2016-07-07] MEDS ORDERED: ZIPRASIDONE MESYLATE 20 MG VIAL IM ONE (00:30)
[2016-07-07 00:31] LABS: BHCG SCREEN QUALITATIVE LESS THAN 1 MIU/ML (0-5)
[2016-07-07 00:45] LABS: AMPHETAMINE, URINE NEG (NEG); BARBITURATES, URINE NEG (NEG); COCAINE, URINE POS (NEG)
[2016-07-07 00:56] LABS: BLOOD, URINE NEG (NEG); COMMENT (UR) CULT NOT INDICATED; CULTURE IF INDICATED CULT NOT INDICATED; GLUCOSE,URINE NEG (NEG); HYALINE CAST, URINE 142 /lpf (RARE); KETONE, URINE TRACE mg/dL (NEG); MUCUS URINE MANY /lpf (OCC); NITRITE,URINE NEG (NEG); SQUAMOUS EPITHELIAL CELL URINE 5 /hpf (0-5)
[2016-07-07 01:00] LABS: URINE COLOR DARK-BROWN (YELLW/STRAW)
[2016-07-07] MEDS: cefTRIAXone INJ 1,000 MG in SODIUM CHLORIDE 0.9% INJ 100 ML IV SCH (01:27)
[2016-07-07] MEDS: LORazepam 1 MG TAB PO SCH ×3 (06:09→16:21)
[2016-07-07 06:59] LABS: ANION GAP 9 MEQ/L (5-15); BICARBONATE 27.4 MEQ/L (21.0-32.0); BLOOD UREA NITROGEN 10 MG/DL (7-18); CHLORIDE 104 MEQ/L (98-107); GLOMERULAR FILTRATION RATE 103 ML/MIN (>89); HDL CHOLESTEROL 83.7 MG/DL (40.0-60.0); LDL CHOLESTEROL 53 MG/DL (0-99); MAGNESIUM 2.1 MG/DL (1.5-2.5); SODIUM (NA) 140 MEQ/L (136-145)
[2016-07-07 07:02] LABS: POTASSIUM 3.9 MEQ/L (3.5-5.1)
[2016-07-07] MEDS: THIAMINE HCL 100 MG TAB PO SCH (09:00)
[2016-07-07] MEDS: REMOVE OLD PATCH T-DERMAL SCH (09:00)
[2016-07-07] MEDS: FOLIC ACID 1 MG TAB PO SCH (09:00)
[2016-07-07] MEDS: SODIUM CHLOR 0.9% 1000 ML INJ 1,000 ML IV SCH ×3 (09:42→22:34)
[2016-07-07] MEDS: NICOTINE 21 MG/24 HR PATCH T-DERMAL SCH (11:10)
--- NOTE | 2016-07-07 12:22 | PD.CONS ---
Provisional Diagnosis Admission Date Jul 06, 2016 at 16:54 [place] I. 1. Brief psychotic disorder Rule out substance-induced psychotic disorder Rule out mood disorder with psychotic features such as bipolar disorder with psychotic features Rule out primary psychotic disorder Rule out severe anxiety with some degree of dissociation 2. Polysubstance abuse including alcohol and cannabis [place] II. Deferred [place] V. GAF is 40 presently History of Present Illness Service Psychiatry Consult Requested By Primary Care Physician No Primary Care Physician HPI Previous documentation of Dr. Glover : "Ms. Melvin is a 35-year-old female with a reported history of anxiety and posttraumatic stress who presents under a Rodriguez act from [facility]'s office alleging that the patient was observed screaming at a filing cabinet and claiming her boyfriend was . She also allegedly believed that she had an implant in her head and everyone could see what she was thinking. Per the Rodriguez act, the symptoms have been going on for several months. Reviewing the electronic medical record, I note the patient was admitted briefly under my care at the beginning of May for what I suspected at the time was a drug induced psychotic disorder ; she was ultimately discharged AGAINST MEDICAL ADVICE. Patient seen and examined. Chart reviewed. Case discussed with nursing staff. Nursing is obtained collateral from patient's mother suggesting that patient psychiatric symptoms on this occasion her of more recent vintage then had been alleged in the Rodriguez act. In particular, mother reportedly told nurse that the patient has not been sleeping for the last 7 days and has been experiencing the above delusions in the context of her sleeplessness. On my examination today, the patient reports that following her departure from the inpatient psychiatric unit in early May she continued to experience what she describes as panic attacks. She says that yesterday evening she was at a alliance party and was drinking and smoking cannabis and had a similar attack. She describes this episode as a period of intense anxiety and feeling "like I was carrying a weight on my shoulders." She says that she was experiencing auditory hallucinations at that time "nothing harmful or suicidal, just little messages, quotes, numbers, letters like a password." She denies any visual hallucinations, although nursing staff tells me that patient thought that nurse's computer station was resting on the back of some sort of animal. No reported ongoing auditory hallucinations. She does not recall experiencing any of the paranoia that was alleged in the Rodriguez act. She remains quite generally anxious. She denies any suicidal or homicidal thoughts." Patient is ready now to sedated to be interviewed, she was medicated with IM sedation, and restrained in 4 point due to aggressive behavior hours ago. Past Family Social History Coded Allergies: No Known Allergies (Unverified , 07/06/16) Per pt. Discontinued Scripts Folic Acid (Folate)1 Mg Tab1 Mg PO DAILY 30 Days Ref 0 Prov:Viktor Glover MD 06/02/16 Thiamine (Vitamin B-1)100 Mg Xdt525 Mg PO DAILY 30 Days Ref 0 Prov:Viktor Glover MD 06/02/16 Current Medications Medications (Trade) Dose Ordered Sig/Good Route Start Time Stop Time Status Last Admin (Zofran Odt) 4 mg Q8H PRN PO 07/06/16 15:45 07/06/16 22:59 (Ativan) 1 mg Q4H PRN PO 07/06/16 15:45 (Ativan) 2 mg Q2H PRN PO 07/06/16 15:45 07/06/16 17:49 (Tylenol) 650 mg Q4H PRN PO 07/06/16 17:00 07/06/16 23:00 (Milk Of Magnesia Liq) 30 ml DAILY PRN PO 07/06/16 17:00 (Mag-Al Plus Susp Liq) 30 ml Q6H PRN PO 07/06/16 17:00 (Habitrol 21 Mg Patch.24 Hr) 1 patch DAILY T-DERMAL 07/07/16 09:00 07/07/16 11:10 (Atarax) 50 mg Q6H PRN PO 07/06/16 17:00 (Cogentin) 1 mg Q12H PRN PO 07/06/16 17:00 (Cogentin Inj) 1 mg Q12H PRN IM 07/06/16 17:00 Miscellaneous Information 1 DAILY T-DERMAL 07/07/16 09:00 (Vitamin B1) 100 mg DAILY PO 07/07/16 09:00 (Folate) 1 mg DAILY PO 07/07/16 09:00 (ZyPREXA) 5 mg HS PO 07/06/16 21:00 Lorazepam 1 mg 1 mg Taper Q6HR PO 07/06/16 18:00 07/10/16 17:59 07/07/16 06:09 (NS 1000 ml Inj) 1,000 ml @ 125 mls/hr Q8H IV 07/06/16 23:15 07/07/16 09:42 (Romazicon Inj) 0.2 mg Q1M PRN IV PUSH 07/06/16 23:45 (Ativan Inj) 1 mg Q4H PRN IV PUSH 07/06/16 23:45 07/07/16 09:36 (Ativan Inj) 2 mg Q2H PRN IV PUSH 07/06/16 23:45 (Ativan Inj) 2 mg Q1H PRN IV PUSH 07/06/16 23:45 (Ativan Inj) 2 mg Q15M PRN IV PUSH 07/06/16 23:45 Haloperidol Lactate 2 mg 2 mg Q15M PRN IM 07/06/16 23:45 07/07/16 04:27 (Rocephin Inj/NS Inj) 100 ml @ 200 mls/hr Q24H IV 07/07/16 01:00 07/07/16 01:27 Patient's Strengths (min. 2) In a monitored setting. Verbally fluent. Physical Exam Vital Signs Vital Signs Date Time Temp Pulse Resp B/P Pulse Ox O2 Delivery O2 Flow Rate FiO2 07/07/16 09:00 82 18 132/65 99 Room Air 07/07/16 01:36 2 07/06/16 22:52 99.9 Assessment & Plan Problem List: (1) Psychosis Assessment & Plan: Patient is sleeping now to sedated to be interviewed, she was medicated with IM sedation, and restrained in 4 point due to aggressive behavior hours ago. Please reconsult once patient is alert and able to cooperate. ICD Code: F29 (2) Substance abuse ICD Code: F19.10 Assessment & Plan Estimated LOS: days Request HC Surrog/Guard Advoc?: No Problem Qualifiers (1) Psychosis: Qualified Code: F23 - Brief psychotic disorder Jaden Coello MD Jul 07, 2016 12:22
--- NOTE | 2016-07-07 13:12 | HHI.PR ---
Subjective Remarks Vision laying in bed she is somnolent, she woke up to voice but she was still drowsy not a good historian She sat up in bed she went back to lay down and to sleep, she told me "I'm okay " Objective Vitals Vital Signs Date Time Temp Pulse Resp B/P Pulse Ox O2 Delivery O2 Flow Rate FiO2 07/07/16 09:00 82 18 132/65 99 Room Air 07/07/16 06:09 75 16 125/83 99 Room Air 07/07/16 03:30 87 20 106/69 100 Room Air 07/07/16 01:36 99 18 104/69 98 Nasal Cannula 2 07/07/16 00:55 141 24 95/59 98 Nasal Cannula 2 07/06/16 23:52 114 18 109/75 100 Room Air 07/06/16 22:52 99.9 110 20 114/67 98 Room Air 07/06/16 21:03 99.8 124 07/06/16 17:55 113 22 123/79 96 Room Air 07/06/16 14:29 98.7 87 20 125/81 98 Room Air Result Diagram: 07/06/16 1250 07/07/16 0514 Objective Remarks GENERAL: This is a well-nourished, well-developed patient, in no apparent distress. Somnolent SKIN: No rashes, warm and dry HEAD: Atraumatic. Normocephalic. EYES: Pupils equal round and reactive. Extraocular motions intact. No scleral icterus. ENT: Nose without bleeding, or drainage, Airway patent. NECK: Trachea midline. Supple CARDIOVASCULAR: Regular rate and rhythm without murmurs, gallops, or rubs. RESPIRATORY: Fair air entry bilaterally. No wheezes, rales, or rhonchi. GASTROINTESTINAL: Abdomen soft, non-tender, nondistended. Positive bowel sounds MUSCULOSKELETAL: Extremities without clubbing, cyanosis, or edema. Pedal pulses appreciated NEUROLOGICAL: Somnolent. Moves all extremity. No obvious neuro deficit A/P Problem List: (1) SIRS (systemic inflammatory response syndrome) ICD Code: R65.10 Status: Acute (2) Hypokalemia ICD Code: E87.6 Status: Acute (3) Hypomagnesemia ICD Code: E83.42 Status: Acute (4) Psychosis ICD Code: F29 Status: Acute (5) Alcohol abuse ICD Code: F10.10 Status: Acute Assessment and Plan 1. SIRS: Temp 99.9, WBC normal however + left shift, tachycardia HR 110-130' s. Possibly related to withdrawal or underlying infection. Lactic Acid normal. We'll follow Blood Cultures, CXR within normal limits, U/a reviewed small leukocyte esterase, WBC 8 and Urine Drug Screen positive for cocaine and cannabinoid, IVF for hydration. 2. Hypokalemia: Resolved, initially K+ 2.5, s/p replacement in ER, repeat K+ 2.7, monitor potassium level. Replace Mg as well. 3. Hypomagnesemia: Resolved initially Mg 1.5, status post replace 4. Psychosis: Currently under Rodriguez Act for bizarre behavior, s/p admit to JPod w/ eval by Dr. Glover, however pt transferred to medical floor. re- consult Psych for evaluation, patient was sedated when psychiatrist came to evaluate , psychiatrist started her on tapered dose of Ativan, reconsult when patient more awake, with back off on Ativan has tolerated. Persistent agitation requiring multiple doses of Ativan and Haldol. leather restraints to be reassessed. S/p Geodon, calm now. Sitter. 5. Alcohol Abuse: w/ Acute Alcohol Withdrawal. Drinks 1 Pint Vodka daily per report. CIWA, Seizure Precautions, Thiamine/Folate/MVT. 6. DVT Prophylaxis: SCD/Teds. Problem Qualifiers (1) Psychosis: Qualified Code: F23 - Brief psychotic disorder Caron Shearer MD Jul 07, 2016 13:11
[2016-07-07 13:31] LABS: HEMOGLOBIN A1a 1.6 %; HEMOGLOBIN A1b 0.6 %; HEMOGLOBIN Ao 86.5 %; HEMOGLOBIN F 1.6 %; HEMOGLOBIN LA1C 1.7 %
--- NOTE | 2016-07-07 19:58 | EKG ---
Date Performed: 07/06/2016 Time Performed: 15:34:27 PTAGE: 35 years EKG: Sinus rhythm NORMAL ECG PREVIOUS TRACING : 07/06/2016 15.31 Compared to prior tracing no significant change DOCTOR: Rony Arita Interpretating Date/Time 07/07/2016 19:57:04
[2016-07-07] MEDS: LORazepam 2 MG TAB PO PRN (21:27)
[2016-07-07] MEDS: OLANZapine 5 MG TAB PO SCH (21:27)
[2016-07-08] VITALS (8 sets, daily range): BP systolic 118–134; BP diastolic 70–86; PULSE 87–96; RESP 12–18; TEMP 97.6–98.5; O2SAT 96–100
[2016-07-08] MEDS: cefTRIAXone INJ 1,000 MG in SODIUM CHLORIDE 0.9% INJ 100 ML IV SCH ×2 (02:05→23:56)
[2016-07-08] MEDS: LORazepam 1 MG TAB PO PRN (05:33)
[2016-07-08] MEDS: SODIUM CHLOR 0.9% 1000 ML INJ 1,000 ML IV SCH ×2 (05:33→13:40)
[2016-07-08] MEDS: LORazepam 1 MG TAB PO SCH ×5 (05:34→23:54)
[2016-07-08] MEDS: THIAMINE HCL 100 MG TAB PO SCH (08:30)
[2016-07-08] MEDS: FOLIC ACID 1 MG TAB PO SCH (08:30)
[2016-07-08] MEDS: NICOTINE 21 MG/24 HR PATCH T-DERMAL SCH (08:31)
[2016-07-08] MEDS: REMOVE OLD PATCH T-DERMAL SCH (08:31)
--- NOTE | 2016-07-08 14:14 | HHI.PR ---
Subjective Remarks More awake and alert and oriented today sitting in the bed, her boyfriend at the bedside as well as the sitter Denied chest pain short of breath abdominal pain diarrhea constipation fever chills Awaiting psychiatry consultation Objective Vitals Vital Signs Date Time Temp Pulse Resp B/P Pulse Ox O2 Delivery O2 Flow Rate FiO2 07/08/16 12:58 97.6 96 18 134/77 98 07/08/16 09:03 99 21 07/08/16 08:55 98.0 90 18 118/81 98 07/08/16 04:00 98.5 92 18 122/70 96 07/08/16 00:04 98.2 88 12 119/79 98 07/07/16 19:47 97.9 96 18 134/85 99 07/07/16 17:09 97.8 81 18 114/75 94 I/O 07/07/16 07/07/16 07/07/16 07/08/16 07/08/16 07/08/16 07:00 15:00 23:00 07:00 15:00 23:00 Intake Total 1098 ml 1124 ml Balance 1098 ml 1124 ml Intake IV Total 1098 ml 1124 ml # Voids 1 # Bowel Movements 0 Result Diagram: 07/06/16 1250 07/07/16 0514 Objective Remarks GENERAL: This is a well-nourished, well-developed patient, in no apparent distress. Somnolent SKIN: No rashes, warm and dry HEAD: Atraumatic. Normocephalic. EYES: Pupils equal round and reactive. Extraocular motions intact. No scleral icterus. ENT: Nose without bleeding, or drainage, Airway patent. NECK: Trachea midline. Supple CARDIOVASCULAR: Regular rate and rhythm without murmurs, gallops, or rubs. RESPIRATORY: Fair air entry bilaterally. No wheezes, rales, or rhonchi. GASTROINTESTINAL: Abdomen soft, non-tender, nondistended. Positive bowel sounds MUSCULOSKELETAL: Extremities without clubbing, cyanosis, or edema. Pedal pulses appreciated NEUROLOGICAL: Somnolent. Moves all extremity. No obvious neuro deficit A/P Problem List: (1) SIRS (systemic inflammatory response syndrome) ICD Code: R65.10 Status: Acute (2) Hypokalemia ICD Code: E87.6 Status: Acute (3) Hypomagnesemia ICD Code: E83.42 Status: Acute (4) Psychosis ICD Code: F29 Status: Acute (5) Alcohol abuse ICD Code: F10.10 Status: Acute Assessment and Plan 1. SIRS: Temp 99.9, WBC normal however + left shift, tachycardia HR 110-130' s. Possibly related to withdrawal or underlying infection. Lactic Acid normal. We'll follow Blood Cultures, CXR within normal limits, U/a reviewed small leukocyte esterase, WBC 8 and Urine Drug Screen positive for cocaine and cannabinoid, IVF for hydration. 2. Hypokalemia: Resolved, initially K+ 2.5, s/p replacement in ER, repeat K+ 2.7, monitor potassium level. Replace Mg as well. 3. Hypomagnesemia: Resolved initially Mg 1.5, status post replace 4. Psychosis: Currently under Rodriguez Act for bizarre behavior, s/p admit to JPod w/ eval by Dr. Glover, however pt transferred to medical floor. re- consult Psych for evaluation, patient was sedated when psychiatrist came to evaluate , psychiatrist started her on tapered dose of Ativan, will reconsult psych since patient is more awake now, with back off on Ativan has tolerated. Persistent agitation requiring multiple doses of Ativan and Haldol. leather restraints to be reassessed. S/p Geodon, calm now. Sitter. 5. Alcohol Abuse: w/ Acute Alcohol Withdrawal. Drinks 1 Pint Vodka daily per report. CIWA, Seizure Precautions, Thiamine/Folate/MVT. 6. DVT Prophylaxis: SCD/Teds. Problem Qualifiers (1) Psychosis: Qualified Code: F23 - Brief psychotic disorder Caron Shearer MD Jul 08, 2016 14:14
--- NOTE | 2016-07-08 17:00 | MB ---
cc: PRITESH ASH MD DATE OF CONSULTATION: 06/28/2016 HISTORY OF PRESENT ILLNESS This is a 35-year-old white female who was seen per request because earlier when she was evaluated by a psychiatrist she was sedated and now she is able to talk. I understand that the patient has been admitted under the Rodriguez Act. The patient claimed that she called the police and wanted to be Rodriguez acted because she was in extreme panic, was crying, was tremulous and shaking but she denied any suicidal and/or homicidal ideation, intentions or plan. She denied any auditory or visual hallucinations. She was also drinking and she is planning to go to [facility] upon discharge. She has been sleeping okay. She is not exhibiting any behavior or management problem at this time. BACKGROUND HISTORY The patient was born in [place]. She has two brothers. She is the oldest in the family. She was not close to her parents who also used to drink excessively. She was raised by her grandmother. She denied any physical, verbal or sexual abuse growing up. She did finish high school and three years of college. She started to drink when she was about 27 and excessively when she was about 32. She has not been . She has no children. She denied getting into any trouble with the law. PAST PSYCHIATRIC HISTORY She has been hospitalized once. FAMILY HISTORY Positive for mother being anxious and alcoholic. MENTAL STATUS EXAMINATION This is a 35-year-old white female who looks about the same as her stated age, was alert, oriented x3, cooperative, casually dressed. Her speech was slow without any evidence of loose associations or flights of ideas or pressured speech. Her mood was described as feeling fine, mildly shaky and nervous but willing to go to [facility] for help. She denied any anxiety or crying spells, she claimed that she is 100% better. Denied any suicidal ideation, intentions or plan. Denied any homicidal ideation, intentions or plan. Denied any auditory or visual hallucinations or any paranoia. She seems to be of average intelligence with poor recent memory. Her insight is fair and her judgment seems to be okay on hypothetical situation. IMPRESSION Drug-induced mood disorder, history of alcohol abuse. At the present time, in my opinion the patient denies any suicidal and homicidal ideation, intentions or plan, denies any auditory or visual hallucinations. No behavior or management problem exhibited or reported. She does not want to hurt herself. She wants some help and willing to go to [facility]. She does not meet the Rodriguez Act criteria. I will lift the Rodriguez Act and she may be discharged to be followed up as an outpatient once she is medically stable. I thank you very much for allowing me to participate in the care of this patient. Pritesh EID/GÓMEZ /3:45 PM /4:47 PM
[2016-07-08] MEDS: OLANZapine 5 MG TAB PO SCH (21:38)
[2016-07-09] VITALS: BP 128/80; PULSE 82; RESP 18; TEMP 97.3; O2SAT 100
[2016-07-09 02:00] VITALS: BP 130/85; PULSE 85; RESP 18; TEMP 97.7; O2SAT 97
[2016-07-09] MEDS: LORazepam 1 MG TAB PO SCH ×2 (05:40→12:00)
[2016-07-09 07:12] VITALS: O2SAT 98
[2016-07-09 08:00] VITALS: BP 127/85; PULSE 82; RESP 20; TEMP 98.8; O2SAT 99
[2016-07-09] MEDS: SODIUM CHLOR 0.9% 1000 ML INJ 1,000 ML IV SCH ×2 (08:18→08:23)
[2016-07-09] MEDS: REMOVE OLD PATCH T-DERMAL SCH (08:20)
[2016-07-09] MEDS: THIAMINE HCL 100 MG TAB PO SCH (08:20)
[2016-07-09] MEDS: NICOTINE 21 MG/24 HR PATCH T-DERMAL SCH (08:20)
[2016-07-09] MEDS: FOLIC ACID 1 MG TAB PO SCH (08:20)
--- NOTE | 2016-07-09 10:56 | HHI.DS ---
Discharge Summary Admission Date Jul 06, 2016 at 16:54 Discharge Date: Jul 09, 2016 Admitting Diagnosis Psychosis (1) SIRS (systemic inflammatory response syndrome) ICD Code: R65.10 (2) Hypokalemia ICD Code: E87.6 (3) Hypomagnesemia ICD Code: E83.42 (4) Psychosis ICD Code: F29 (5) Alcohol abuse ICD Code: F10.10 Procedures None Brief History - From Admission This is a 35-year-old female with a PMH of Polysubstance Abuse, Anxiety and h/o PTSD who was brought to the ER by [facility]'s Dept under Rodriguez Act for bizarre and inappropriate behavior. Per records, pt was yelling at a file cabinet and thought she had an implant placed in her head so everyone could hear her thoughts. On arrival, BP 117/86, HR 91, O2 sat 96% on RA, Temp 99.0. CBC at baseline. K+ 2.5. LFT elevated, similar in comparison to previous. Was initially admitted to [facility] and had eval by Dr. Glover for Psychosis and Substance Abuse. While in [facility] pt w/ increasing agitation, HR 120's, persistent low-grade temp of 99.9 and persistent hypokalemia despite replacement w/ repeat K+ 2.7. I was called by receiver setter for consult, however recommended pt be transferred for admission to Medicine in light of her multiple medical issues. Pt transferred to ER. While in ER, pt requiring multiple doses of Ativan and Haldol secondary to significant agitation. Unable to obtain any history from pt. CBC/BMP: 07/06/16 1250 07/07/16 0514 Significant Findings Laboratory Tests Test 07/06/16 07/06/16 07/07/16 07/07/16 12:50 18:53 00:15 05:14 Mean Corpuscular Hemoglobin 26.4 PG (27.0-34.0) Platelet Count 100 TH/MM3 (150-450) Neutrophils (%) (Auto) 78.6 % (16.0-70.0) Monocytes (%) (Auto) 8.7 % (0.0-8.0) Neutrophils # (Auto) 7.9 TH/MM3 (1.8-7.7) Sodium Level 135 MEQ/L (136-145) Potassium Level 2.5 MEQ/L 2.7 MEQ/L (3.5-5.1) (3.5-5.1) Chloride Level 93 MEQ/L (98-107) Total Bilirubin 2.4 MG/DL (0.2-1.0) Aspartate Amino Transf 112 U/L (15-37) (AST/SGOT) Alanine Aminotransferase 77 U/L (10-53) (ALT/SGPT) Total Protein 8.5 GM/DL (6.4-8.2) Ammonia 38 MCMOL/L (11-32) Urine Color DARK-BROWN (YELLW/STRAW) Urine Turbidity HAZY (CLEAR) Urine Protein 100 mg/dL (NEG-TRACE) Urine Ketones TRACE mg/dL (NEG) Urine Bilirubin SMALL (NEG) Urine Urobilinogen 4.0 MG/DL (LESS THAN 2.0) Urine Leukocyte Esterase SMALL (NEG) Urine WBC 8 /hpf (0-5) Urine Mucus MANY /lpf (OCC) Urine Cocaine Screen POS (NEG) Urine Cannabinoids Screen POS (NEG) Random Glucose 69 MG/DL (74-106) HDL Cholesterol 83.7 MG/DL (40.0-60.0) Imaging Last Impressions Chest X-Ray 07/06/16 0000 Signed Impressions: Service Date/Time: June 22:37 - CONCLUSION: No evidence of acute cardiopulmonary disease. Nilo Denton MD PE at Discharge GENERAL: This is a well-nourished, well-developed patient, in no apparent distress. Somnolent SKIN: No rashes, warm and dry HEAD: Atraumatic. Normocephalic. EYES: Pupils equal round and reactive. Extraocular motions intact. No scleral icterus. ENT: Nose without bleeding, or drainage, Airway patent. NECK: Trachea midline. Supple CARDIOVASCULAR: Regular rate and rhythm without murmurs, gallops, or rubs. RESPIRATORY: Fair air entry bilaterally. No wheezes, rales, or rhonchi. GASTROINTESTINAL: Abdomen soft, non-tender, nondistended. Positive bowel sounds MUSCULOSKELETAL: Extremities without clubbing, cyanosis, or edema. Pedal pulses appreciated NEUROLOGICAL: Somnolent. Moves all extremity. No obvious neuro deficit Pt update on day of discharge Patient reports that he is feeling well. She requested to go home. She states she has an appointment with [facility] this week and will follow- up. Hospital Course 35-year-old female admitted from the psychiatric observation unit for bizarre behavior and tachycardia. Her urine drug screen was positive for cocaine and cannabinoids. She also drinks 1 pint of vodka daily per report. On evaluation , the patient was found to have SIRS. She was initially sedated due to agitation. The patient was medicated with Ativan and Haldol. The patient was treated for hypokalemia and hypomagnesemia. Regarding psychosis. She was initially placed under Rodriguez act. She was evaluated by psychiatry in the Rodriguez was later lifted. Alcohol withdrawal was treated per [facility] protocol. The patient symptoms significantly improved. She is discharged home to follow up outpatient with [facility]. The patient was totally counseled regarding alcohol cessation and to discontinue using illicit drugs. Pt Condition on Discharge: Good Discharge Disposition: Discharge Home Discharge Time: <= 30 minutes Discharge Instructions DIET: Follow Instructions for: As Tolerated, No Restrictions Activities you can perform: Regular-No Restrictions Medication Profile: No Active Prescriptions or Reported Meds Nitin Perdomo MD Jul 09, 2016 10:56
[2016-07-09 12:00] VITALS: BP 100/83; PULSE 79; RESP 20; TEMP 97.9; O2SAT 99
[2016-07-09 12:52] VITALS: PULSE 66
== END 2016-07-09 12:48 | disposition home or self-care (01) | DRG 897 ==
LOC: NEPJ 11:15 → NEDA 16:54 → NEDH 07-07 09:58 → N05A 07-07 16:43
PROVIDERS: ADMIT Family Medicine; ATTEND Family Medicine
DX: F15.959 Other stimulant use, unspecified with stimulant-induced psychotic disorder, unspecified (principal); F10.239 Alcohol dependence with withdrawal, unspecified; R65.10 Systemic inflammatory response syndrome (SIRS) of non-infectious origin without acute organ dysfunction; F23 Brief psychotic disorder; E83.42 Hypomagnesemia; Z78.1 Physical restraint status; F43.10 Post-traumatic stress disorder, unspecified; F41.9 Anxiety disorder, unspecified; F12.90 Cannabis use, unspecified, uncomplicated; E87.6 Hypokalemia; Y90.0 Blood alcohol level of less than 20 mg/100 ml
CPT/HCPCS: 71010; 80048; 80053; 80061; 80307; 81001; 82140; 83036; 83605; 83735; 84132; 84702; 84703; 85025; 87040; 93005; J0696; J1630; J2060; J3475; J3480; J3486; J7030